=== PATIENT | male | born 1965 | race Caucasian/White ===

== ENCOUNTER 2023-11-26 07:53 | Day surgery (SDC) | payer BC, OTHER ==
[~2023-11-26] VITALS: Ht 175.3 cm; Wt 75.8 kg
[~2023-11-26 07:53] MED LIST: ASPI81TA26 PO; ATOR1TAB21 PO; BRIN1TAB3 PO; CLOP75TA99 PO; METO1TAB7 PO; MIDAZOLAM INJ 2MG/2ML VIAL As Ordered ONE; PHENYLEPHRINE 10% OPHTH SOL 5ML OS PRN; fentaNYL 100 MCG/2 ML INJECTION As Ordered ONE
[2023-11-26] MEDS: OFLOXACIN 0.3 % (OCUFLOX) OPTH SOL 5ML OS ONE (08:30)
[2023-11-26] MEDS: LIDOCAINE 3.5 % 1ML OPHTH TOPICAL GEL OU ONE (08:40)
[2023-11-26] MEDS: PHENYLEPHRINE 2.5% OPHTH SOL 2ML OS SCH (08:47)
[2023-11-26] MEDS: TROPICAMIDE 1% OPHTH SOLN 15ML OS SCH (08:47)
[2023-11-26] MEDS: CYCLOPENTOLATE 1% OPHTH SOLN 2ML BTL OS SCH (08:47)
[2023-11-26] MEDS: LIDOCAINE 1% SDV 5ML VIAL As Ordered ONE (09:08)
[2023-11-26] MEDS: BSS IRRIG/VANCO(10MG)/TOBRA(5MG)/EPINEPH(1:1000-0.5CC)500ML BAG-ORONLY As Ordered ONE (09:08)
[2023-11-26] MEDS: CEFUROXIME 1MG/0.1ML INTRACAMERAL INJ As Ordered ONE (09:08)
[2023-11-26 09:40] VITALS: BP 98/60; TEMP 97.5; O2SAT 95
== END 2023-11-26 10:38 | disposition home or self-care (01) ==
LOC: M SDC 07:53
PROVIDERS: ATTEND Ophthalmology
DX: H25.12 Age-related nuclear cataract, left eye (principal); I25.10 Atherosclerotic heart disease of native coronary artery without angina pectoris; I25.2 Old myocardial infarction; Z95.5 Presence of coronary angioplasty implant and graft; F17.210 Nicotine dependence, cigarettes, uncomplicated; Z79.899 Other long term (current) drug therapy; Z79.82 Long term (current) use of aspirin; Z79.02 Long term (current) use of antithrombotics/antiplatelets
CPT/HCPCS: 66984; 92015; J0697; J2250; J3010; V2632